=== PATIENT | male | born 1960 | race Caucasian/White ===

== ENCOUNTER 2019-05-27 05:28 | Day surgery (SDC) | payer OTHER ==
[2019-05-27] MEDS ORDERED: Lidocaine 1% w EPI 1:100,000* MDV 20 ML VIAL ONE (07:24)
[2019-05-27] MEDS ORDERED: Methylene Blue 0.5 %* 50 MG/10 ML AMP IV ONE (07:24)
[2019-05-27] MEDS ORDERED: Bupivacaine 0.25% SDV PF* 10 ML VIAL INJ ONE (07:25)
[2019-05-27 08:37] VITALS: BP 128/76
== END 2019-05-27 08:38 | disposition home or self-care (01) ==
LOC: OR 05:28
PROVIDERS: ATTEND Plastic Surgery
DX: D03.4 Melanoma in situ of scalp and neck (principal); E78.00 Pure hypercholesterolemia, unspecified; J44.9 Chronic obstructive pulmonary disease, unspecified; Z87.891 Personal history of nicotine dependence
CPT/HCPCS: 88305; J3490